=== PATIENT | male | born 1955 | race Caucasian/White ===

== ENCOUNTER 2017-12-02 02:00 | Outpatient (CLI) | payer MEDICAID, SELFPAY ==
--- NOTE | 2017-12-02 10:00 | MERGE_ITS ---
*[facility]* *[facility]* [address] [place] [address] Date of study: 12/02/2017 Transthoracic Echocardiography M-mode, complete 2D, complete spectral Doppler, and color Doppler *STUDY CONCLUSIONS* Summary: 1. Left ventricle: The cavity size was normal. Systolic function was mildly to moderately reduced. The estimated ejection fraction was 40-45%. Some parameters suggest diastolic dysfunction. There was no evidence of elevated ventricular filling pressure by Doppler parameters. 2. Ventricular septum: The contour showed diastolic flattening and systolic flattening. These changes are consistent with RV volume and RV pressure overload. 3. Aortic valve: There was mild regurgitation. 4. Mitral valve: Systolic bowing without prolapse. Mild systolic bowing without prolapse. There was mild regurgitation. 5. Right ventricle: The cavity size was severely dilated. Systolic function was severely reduced. 6. Right atrium: The atrium was severely dilated. 7. Atrial septum: No defect or patent foramen ovale was identified. 8. Tricuspid valve: There was moderate regurgitation. 9. Pulmonary arteries: Pulmonary systolic pressure was in the range of 35mm Hg to 45mm Hg. 10. Inferior vena cava: The vessel was patent and normal in size. The respirophasic diameter changes were in the normal range (greater than or equal to 50%), consistent with normal central venous pressure. *PATIENT PRESENTATION* Height: 185.4cm ((73in) ) S/D Pressure: 125 / 87 Weight: 112.5kg ((247.5lb) ) BSA: 2.44m^2 Test start time: 10:20 AM. Test stop time: 11:20 AM. PERFORMING Unknown PERFORMING [facility] ORDERING Rathburn, Jeniane L REFERRING Jackie Anders [employer] Lani Paul, RT (R)(CT), [facility] REFERRING Barak Luna *PROCEDURE DATA* Procedure information: The patient was identified by two identifiers. This study was interpreted by [facility]. Pertinent images and digital data are archived for permanent storage and are available for subsequent review. Comparison was made to the study of 09/10/2014. Study status: Routine. Transthoracic echocardiography. M-mode, complete 2D, complete spectral Doppler, and color Doppler. A Transthoracic Echocardiogram was performed. Scanning was performed from the parasternal, apical, subcostal, and suprasternal notch acoustic windows. Images were obtained using an [id number] cardiac ultrasound machine. Image quality was adequate. Study completion: The patient tolerated the procedure well. History: PMH: Leg edema *CARDIAC ANATOMY* Left ventricle: The cavity size was normal. Systolic function was mildly to moderately reduced. The estimated ejection fraction was 40-45%. The tissue Doppler parameters were abnormal. Some parameters suggest diastolic dysfunction. There was no evidence of elevated ventricular filling pressure by Doppler parameters. Aortic valve: Trileaflet. Doppler: There was no stenosis. There was mild regurgitation. VTI ratio of LVOT to aortic valve: 0.78. Valve area (VTI): 2.8cm^2. Indexed valve area (VTI): 1.1cm^2/m^2. Peak velocity ratio of LVOT to aortic valve: 0.83. Valve area (Vmax): 3cm^2. Indexed valve area (Vmax): 1.2cm^2/m^2. Mean velocity ratio of LVOT to aortic valve: 0.78. Valve area (Vmean): 2.8cm^2. Indexed valve area (Vmean): 1.1cm^2/m^2. Mean gradient (S): 1.5mm Hg. Peak gradient (S): 2.3mm Hg. Aorta: Aortic root: The aortic root was mildly dilated. Ascending aorta: The ascending aorta was mildly dilated. Mitral valve: Systolic bowing without prolapse. Mild systolic bowing without prolapse. Doppler: There was no evidence for stenosis. There was mild regurgitation. Valve area by pressure half-time: 4.4cm^2. Indexed valve area by pressure half-time: 1.8cm^2/m^2. Left atrium: The atrium was normal in size. Atrial septum: No defect or patent foramen ovale was identified. Right ventricle: The cavity size was severely dilated. Systolic function was severely reduced. Ventricular septum: The contour showed diastolic flattening and systolic flattening. These changes are consistent with RV volume and RV pressure overload. Pulmonic valve: Doppler: There was no evidence for stenosis. There was mild regurgitation. Tricuspid valve: Doppler: There was moderate regurgitation. Pulmonary artery: Poorly visualized. Pulmonary systolic pressure was in the range of 35mm Hg to 45mm Hg. Right atrium: The atrium was severely dilated. Pericardium: There was no pericardial effusion. Systemic veins: Inferior vena cava: Well visualized. The vessel was patent and normal in size. The respirophasic diameter changes were in the normal range (greater than or equal to 50%), consistent with normal central venous pressure. Baseline ECG: Normal sinus rhythm. Measurements Left ventricle Value Reference LV ID, ED, PLAX 5.0 cm 3.5 - 6.0 LV ID, ES, PLAX 4.0 cm 2.1 - 4.0 LV PW thickness, ED, PLAX 1.2 cm LV end-diastolic volume, 1-p A2C 84 ml LV ejection fraction, 1-p A2C 51 % LV end-diastolic volume, 1-p A4C 65 ml LV ejection fraction, 1-p A4C 59 % LV e', lateral 0.032 m/sec LV E/e', lateral 8 LV e', medial 0.029 m/sec LV E/e', medial 8 LV e', average 0.031 m/sec LV E/e', average 8 Ventricular septum Value Reference IVS thickness, ED, PLAX 1.1 cm LVOT Value Reference LVOT ID, A-P 2.1 cm LVOT area 3.6 cm^2 LVOT peak velocity, S 0.62 m/sec LVOT mean velocity, S 0.46 m/sec LVOT VTI, S 9.9 cm LVOT peak gradient, S 1.6 mm Hg LVOT mean gradient, S 1 mm Hg Stroke volume (SV), LVOT DP 35 ml Stroke index (SV/bsa), LVOT DP 14 ml/m^2 Aortic valve Value Reference Aortic valve peak velocity, S 0.8 m/sec Aortic valve mean velocity, S 0.59 m/sec Aortic valve VTI, S 12.6 cm Aortic mean gradient, S 1.5 mm Hg Aortic peak gradient, S 2.3 mm Hg VTI ratio, LVOT/AV 0.78 Aortic valve area, VTI 2.8 cm^2 Velocity ratio, peak, LVOT/AV 0.83 Aortic valve area, peak velocity 3 cm^2 Velocity ratio, mean, LVOT/AV 0.78 Aortic valve area, mean velocity 2.8 cm^2 Aortic valve area/bsa, mean velocity 1.1 cm^2/m^2 Aorta Value Reference Aortic root ID, ED 4.0 cm Ascending aorta ID, A-P, S 3.8 cm RVOT Value Reference RVOT VTI, S 5.0 cm Left atrium Value Reference LA ID, A-P, ES 3.3 cm LA ID/bsa, A-P 1.4 cm/m^2 <=2.2 LA area, ES, A4C 20.4 cm^2 8.8 - 23.4 LA area, ES, A2C 17 cm^2 LA volume/bsa, ES, 1-p A4C 23 ml/m^2 LA volume, ES, 2-p 57 ml LA volume/bsa, ES, 2-p 23 ml/m^2 LA/aortic root ratio 0.84 Mitral valve Value Reference Mitral E-wave peak velocity 0.24 m/sec Mitral A-wave peak velocity 0.49 m/sec Mitral deceleration time 171 ms 150 - 230 Mitral pressure half-time 50 ms Mitral E/A ratio, peak 0.5 Mitral valve area, PHT, DP 4.4 cm^2 Tricuspid valve Value Reference Tricuspid regurg peak velocity 3.3 m/sec Tricuspid peak RV-RA gradient 44.2 mm Hg Right atrium Value Reference RA area, ES, A4C (H) 35.8 cm^2 8.3 - 19.5 Legend: (L) and (H) sabas values outside specified reference range. I have personally reviewed the images and have reviewed and edited the reported findings. Electronically signed by Jose Rushing MD 12/02/2017 19:18
== END 2017-12-02 02:20 ==
PROVIDERS: PCP Physician Assistant Medical; Visit Provider Physician Assistant Medical
DX: R60.0 Localized edema (principal); I08.3 Combined rheumatic disorders of mitral, aortic and tricuspid valves; I10 Essential (primary) hypertension; I50.9 Heart failure, unspecified
CPT/HCPCS: 93306

== ENCOUNTER 2017-12-02 11:35 | Outpatient (CLI) | payer MEDICAID, SELFPAY ==
[2017-12-02 12:01] LABS: Anion Gap 0.5 mmol/L (3-11); BUN 41 mg/dL (7-18); CO2 42.5 mmol/L (21.0-32.0); CREATININE 2.43 mg/dL (0.70-1.30); Calcium 9.3 mg/dL (8.5-10.1); Chloride 92 mmol/L (98-107); Estimated GFR 27.36 (mL/min/1.73m2); Glucose 82 mg/dL (70-100); Sodium 135 mmol/L (136-145)
== END 2017-12-02 11:55 ==
PROVIDERS: PCP Physician Assistant Medical; Visit Provider Physician Assistant Medical
DX: R60.0 Localized edema (principal)
CPT/HCPCS: 36415; 80048

== ENCOUNTER 2017-12-08 11:24 | Outpatient (REF) | payer MEDICAID, SELFPAY ==
[2017-12-09 00:03] LABS: BUN 51 mg/dL (7-18); CREATININE 2.62 mg/dL (0.70-1.30); Calcium 9.4 mg/dL (8.5-10.1); Chloride 90 mmol/L (98-107); Estimated GFR 25.08 (mL/min/1.73m2); Glucose 68 mg/dL (70-100); Potassium 3.5 mmol/L (3.5-5.1); Sodium 137 mmol/L (136-145)
== END 2017-12-08 11:44 ==
LOC: NCHCN 11:24
PROVIDERS: PCP Physician Assistant Medical; Visit Provider Physician Assistant Medical
DX: N18.3 Chronic kidney disease, stage 3 (moderate) (principal)
CPT/HCPCS: 80048

== ENCOUNTER 2017-12-15 14:19 | Outpatient (REF) | payer MEDICAID, SELFPAY ==
[2017-12-15 20:23] LABS: Anion Gap 10.3 mmol/L (3-11); BUN 40 mg/dL (7-18); CO2 35.7 mmol/L (21.0-32.0); CREATININE 1.97 mg/dL (0.70-1.30); Calcium 9.2 mg/dL (8.5-10.1); Chloride 93 mmol/L (98-107); Estimated GFR 34.85 (mL/min/1.73m2); Glucose 70 mg/dL (70-100); Magnesium 1.9 mg/dL (1.8-2.4); Sodium 139 mmol/L (136-145)
[2017-12-15 20:29] LABS: Potassium 2.9 mmol/L (3.5-5.1)
== END 2017-12-15 14:39 ==
LOC: NCHCN 14:19
PROVIDERS: PCP Physician Assistant Medical; Visit Provider Physician Assistant Medical
DX: E83.42 Hypomagnesemia (principal); N18.3 Chronic kidney disease, stage 3 (moderate); R60.0 Localized edema
CPT/HCPCS: 80048; 83735

== ENCOUNTER 2017-12-22 10:31 | Outpatient (REF) | payer MEDICAID, SELFPAY ==
[2017-12-22 20:50] LABS: Anion Gap 5.7 mmol/L (3-11); BUN 41 mg/dL (7-18); CO2 39.3 mmol/L (21.0-32.0); CREATININE 1.99 mg/dL (0.70-1.30); Chloride 94 mmol/L (98-107); Estimated GFR 34.45 (mL/min/1.73m2); Glucose 85 mg/dL (70-100); Potassium 3.6 mmol/L (3.5-5.1); Sodium 139 mmol/L (136-145)
== END 2017-12-22 10:51 ==
LOC: NCHCN 10:31
PROVIDERS: PCP Physician Assistant Medical; Visit Provider Physician Assistant Medical
DX: N18.3 Chronic kidney disease, stage 3 (moderate) (principal)
CPT/HCPCS: 80048

== ENCOUNTER 2017-12-29 20:02 | Outpatient (REF) | payer MEDICAID, SELFPAY ==
[2017-12-29 20:32] LABS: Anion Gap 10.4 mmol/L (3-11); BUN 38 mg/dL (7-18); CO2 37.6 mmol/L (21.0-32.0); CREATININE 1.87 mg/dL (0.70-1.30); Calcium 9.6 mg/dL (8.5-10.1); Chloride 94 mmol/L (98-107); Estimated GFR 37.01 (mL/min/1.73m2); Glucose 92 mg/dL (70-100); Potassium 3.5 mmol/L (3.5-5.1); Sodium 142 mmol/L (136-145)
== END 2017-12-29 20:22 ==
LOC: NCHCN 20:02
PROVIDERS: PCP Physician Assistant Medical; Visit Provider Physician Assistant Medical
DX: E87.6 Hypokalemia (principal); N18.3 Chronic kidney disease, stage 3 (moderate)
CPT/HCPCS: 80048

== ENCOUNTER 2018-01-24 14:37 | Outpatient (REF) | payer MEDICAID, SELFPAY ==
[2018-01-24 21:16] LABS: Anion Gap 9.1 mmol/L (3-11); BUN 34 mg/dL (7-18); CO2 36.9 mmol/L (21.0-32.0); CREATININE 1.94 mg/dL (0.70-1.30); Calcium 9.1 mg/dL (8.5-10.1); Chloride 93 mmol/L (98-107); Estimated GFR 35.48 (mL/min/1.73m2); Glucose 82 mg/dL (70-100); Sodium 139 mmol/L (136-145); Uric Acid 11.6 mg/dL (3.5-7.2)
== END 2018-01-24 14:57 ==
LOC: NCHCN 14:37
PROVIDERS: PCP Physician Assistant Medical; Visit Provider Physician Assistant Medical
DX: N18.3 Chronic kidney disease, stage 3 (moderate) (principal); M25.579 Pain in unspecified ankle and joints of unspecified foot; E16.2 Hypoglycemia, unspecified
CPT/HCPCS: 80048; 84550

== ENCOUNTER 2018-02-21 13:34 | Outpatient (REF) | payer MEDICAID, SELFPAY ==
[2018-02-21 21:21] LABS: Anion Gap 7.6 mmol/L (3-11); BUN 44 mg/dL (7-18); CO2 40.4 mmol/L (21.0-32.0); CREATININE 2.37 mg/dL (0.70-1.30); Calcium 9.7 mg/dL (8.5-10.1); Chloride 90 mmol/L (98-107); Estimated GFR 28.06 (mL/min/1.73m2); Glucose 80 mg/dL (70-100); Potassium 3.1 mmol/L (3.5-5.1); Sodium 138 mmol/L (136-145)
== END 2018-02-21 13:54 ==
LOC: NCHCN 13:34
PROVIDERS: PCP Physician Assistant Medical; Visit Provider Physician Assistant Medical
DX: E87.6 Hypokalemia (principal); I50.9 Heart failure, unspecified
CPT/HCPCS: 80048

== ENCOUNTER 2018-03-08 16:30 | Outpatient (REF) | payer MEDICARE, MEDICAID, SELFPAY ==
[2018-03-08 20:27] LABS: Anion Gap 9.2 mmol/L (3-11); BUN 36 mg/dL (7-18); CO2 36.8 mmol/L (21.0-32.0); CREATININE 2.02 mg/dL (0.70-1.30); Calcium 9.3 mg/dL (8.5-10.1); Chloride 92 mmol/L (98-107); Estimated GFR 33.75 (mL/min/1.73m2); Glucose 74 mg/dL (70-100); Potassium 3.3 mmol/L (3.5-5.1); Sodium 138 mmol/L (136-145)
[2018-03-11 10:52] LABS: IgE 1792 IU/ml (<158)
== END 2018-03-08 16:50 ==
LOC: NCHCN 16:30
PROVIDERS: PCP Physician Assistant Medical; Visit Provider Physician Assistant Medical
DX: B44.81 Allergic bronchopulmonary aspergillosis (principal); N18.3 Chronic kidney disease, stage 3 (moderate)
CPT/HCPCS: 80048; 82785

== ENCOUNTER 2018-05-17 13:47 | Outpatient (REF) | payer MEDICARE, MEDICAID, SELFPAY ==
[2018-05-17 18:47] LABS: Hemoglobin A1C 5.7 % (4.5-6.2)
[2018-05-17 18:48] LABS: ALT 32 U/L (12-78); AST 34 U/L (15-37); Albumin 3.6 g/dL (3.4-5.0); Alkaline Phosphatase 75 U/L (46-116); Anion Gap 1.1 mmol/L (3-11); BUN 25 mg/dL (7-18); Bilirubin, Total 3.1 mg/dL (0.2-1.0); CO2 43.9 mmol/L (21.0-32.0); CREATININE 2.26 mg/dL (0.70-1.30); Calcium 9.4 mg/dL (8.5-10.1); Chloride 97 mmol/L (98-107); Estimated GFR 29.65 (mL/min/1.73m2); Glucose 79 mg/dL (70-100); Magnesium 1.9 mg/dL (1.8-2.4); Potassium 3.4 mmol/L (3.5-5.1); Sodium 142 mmol/L (136-145); Total Protein 7.2 g/dL (6.4-8.2); Uric Acid 12.5 mg/dL (3.5-7.2)
== END 2018-05-17 14:07 ==
LOC: NCHCN 13:47
PROVIDERS: PCP Physician Assistant Medical; Visit Provider Physician Assistant Medical
DX: N18.3 Chronic kidney disease, stage 3 (moderate) (principal); M1A.0790 Idiopathic chronic gout, unspecified ankle and foot, without tophus (tophi); R73.09 Other abnormal glucose
CPT/HCPCS: 80053; 83036; 83735; 84550

== ENCOUNTER 2018-06-27 14:46 | Outpatient (REF) | payer MEDICARE, MEDICAID, SELFPAY ==
[2018-06-27 21:16] LABS: Anion Gap 8.2 mmol/L (3-11); BUN 35 mg/dL (7-18); CO2 36.8 mmol/L (21.0-32.0); CREATININE 2.71 mg/dL (0.70-1.30); Calcium 9.5 mg/dL (8.5-10.1); Chloride 95 mmol/L (98-107); Estimated GFR 24.04 (mL/min/1.73m2); Glucose 70 mg/dL (70-100); Sodium 140 mmol/L (136-145); Uric Acid 13.8 mg/dL (3.5-7.2)
== END 2018-06-27 15:06 ==
LOC: NCHCN 14:46
PROVIDERS: PCP Physician Assistant Medical; Visit Provider Physician Assistant Medical
DX: N18.3 Chronic kidney disease, stage 3 (moderate) (principal); M1A.0790 Idiopathic chronic gout, unspecified ankle and foot, without tophus (tophi)
CPT/HCPCS: 80048; 84550

== ENCOUNTER 2018-10-26 15:20 | Outpatient (CLI) | payer MEDICARE, MEDICAID, SELFPAY | END 2018-10-26 15:40 | PROVIDERS: PCP Physician Assistant Medical; Visit Provider Internal Medicine Pulmonary Disease | DX: R69 Illness, unspecified (principal) ==

== ENCOUNTER 2018-10-27 10:21 | Outpatient (CLI) | payer MEDICARE, MEDICAID, SELFPAY ==
--- NOTE | 2018-10-26 | PFT_ITS ---
PULMONARY FUNCTION TEST REPORT Patient - John Paul Kenyon DATE OF SERVICE October 26, 2018 REQUESTING PROVIDER Declan Rush MD INTERPRETATION OF STUDY Spirometry shows moderately severe obstructive airways disease with some, but not significant bronchodilator response. LUNG VOLUMES - Lung volumes show mild restriction. DIFFUSION CAPACITY- Normal. AIRWAY RESISTANCE - Normal. IMPRESSION Combination of moderately severe obstructive airways disease with some, but not significant bronchodilator response and mild restrictive lung disease. Clinical correlation recommended. When this study was compared to previous one from 02/19/2014, the patient has a total of 430 cc decline in FVC and 640 cc decline in FEV1. Deanne Oliver M.D. VLADISLAV/ T- 10/27/2018
[2018-10-26] MEDS: Albuterol HFA 18 GM 200 PUFF INH IH (11:02)
[2018-10-26] MEDS: Inhaler, Assist Device 1 EACH MC (11:02)
[2018-10-27 10:27] LABS: HCO3 35 mmol/L (22-28); pCO2 42 mmHg (34-47); pH 7.52 (7.35-7.45); pO2 104 mmHg (83-108); sO2 98 % (94-98); tCO2 28 mmol/L (22-29)
[2018-10-27 10:30] LABS: Site Right Radial
== END 2018-10-27 10:41 ==
PROVIDERS: PCP Physician Assistant Medical; Visit Provider Internal Medicine Pulmonary Disease
DX: R06.02 Shortness of breath (principal); B44.81 Allergic bronchopulmonary aspergillosis; R55 Syncope and collapse
CPT/HCPCS: 82805; 94060; 94150; 94726; 94729; 36600

== ENCOUNTER 2019-02-10 13:09 | Outpatient (REF) | payer MEDICARE, MEDICAID, SELFPAY ==
[2019-02-10 20:41] LABS: Absolute Basophil Count 0.03 k/cumm (0.0-0.2); Absolute Eosinophil Count 0.15 k/cumm (0.0-0.7); Absolute Lymphocyte Count 0.56 k/cumm (1.2-3.4); Absolute Monocyte Count 0.63 k/cumm (0.11-0.7); Absolute Neutrophil Count 3.54 k/cumm (1.2-6.7); Basophils % 0.6; Eosinophils % 3.1; HCT 53.7 % (40.0-50.0); HGB 18.2 g/dL (13.5-17.5); Lymphocytes % 11.4; Mean Corp. HGB Concentration 33.9 g/dL (32.0-36.0); Mean Corpuscular Hemoglobin 35.9 pg (27.0-33.0); Mean Corpuscular Volume 105.9 fL (80-95); Mean Platelet Volume 12.1 fL (8.0-11.0); Monocytes % 12.8; Neutrophils % 72.1; Platelet Count 129 x1000/uL (130-400); RBC 5.07 m/cumm (4.50-6.00); RBC Distribution Width 15.9 % (11.8-14.1); White Blood Cell Count 4.91 k/cumm (4.4-10.8)
[2019-02-10 20:45] LABS: Anion Gap 9.7 mmol/L (3-11); BUN 28 mg/dL (7-18); CO2 34.3 mmol/L (21.0-32.0); CREATININE 2.54 mg/dL (0.70-1.30); Calcium 9.2 mg/dL (8.5-10.1); Chloride 94 mmol/L (98-107); Estimated GFR 25.82 (mL/min/1.73m2); Glucose 53 mg/dL (70-100); Sodium 138 mmol/L (136-145)
[2019-02-10 20:56] LABS: Potassium 2.9 mmol/L (3.5-5.1)
[2019-02-10 21:01] LABS: Macrocytosis 1+
[2019-02-10 21:12] LABS: Hemoglobin A1C 5.9 % (4.5-6.2)
== END 2019-02-10 13:29 ==
LOC: NCHCN 13:09
PROVIDERS: PCP Physician Assistant Medical; Visit Provider Physician Assistant Medical
DX: I27.24 Chronic thromboembolic pulmonary hypertension (principal); R73.01 Impaired fasting glucose; N18.3 Chronic kidney disease, stage 3 (moderate)
CPT/HCPCS: 80048; 83036; 85025

== ENCOUNTER 2019-02-20 21:56 | Outpatient (REF) | payer MEDICARE, MEDICAID, SELFPAY ==
[2019-02-20 22:25] LABS: ALT 29 U/L (16-63); AST 35 U/L (15-37); Albumin 3.9 g/dL (3.4-5.0); Alkaline Phosphatase 75 U/L (46-116); Anion Gap 11.7 mmol/L (3-11); BUN 31 mg/dL (7-18); Bilirubin, Total 4.3 mg/dL (0.2-1.0); CO2 33.3 mmol/L (21.0-32.0); CREATININE 2.47 mg/dL (0.70-1.30); Calcium 9.5 mg/dL (8.5-10.1); Chloride 96 mmol/L (98-107); Estimated GFR 26.67 (mL/min/1.73m2); Glucose 93 mg/dL (74-106); Potassium 3.1 mmol/L (3.5-5.1); Sodium 141 mmol/L (136-145); Total Protein 7.1 g/dL (6.4-8.2)
== END 2019-02-20 22:16 ==
LOC: NCHCN 21:56
PROVIDERS: PCP Physician Assistant Medical; Visit Provider Physician Assistant Medical
DX: E87.5 Hyperkalemia (principal)
CPT/HCPCS: 80053

== ENCOUNTER 2019-03-07 09:45 | Outpatient (REF) | payer MEDICARE, MEDICAID, SELFPAY ==
[2019-03-07 19:46] LABS: BUN 34 mg/dL (7-18); CREATININE 2.56 mg/dL (0.70-1.30); Chloride 98 mmol/L (98-107); Estimated GFR 25.59 (mL/min/1.73m2); Glucose 92 mg/dL (74-106); Potassium 3.3 mmol/L (3.5-5.1); Sodium 141 mmol/L (136-145)
== END 2019-03-07 10:05 ==
LOC: NCHCN 09:45
PROVIDERS: PCP Physician Assistant Medical; Visit Provider Physician Assistant Medical
DX: I10 Essential (primary) hypertension (principal)
CPT/HCPCS: 80048

== ENCOUNTER 2019-06-02 11:39 | Outpatient (REF) | payer MEDICARE, MEDICAID, SELFPAY ==
[2019-06-02 19:11] LABS: Absolute Basophil Count 0.04 k/cumm (0.0-0.2); Absolute Eosinophil Count 0.35 k/cumm (0.0-0.7); Absolute Monocyte Count 0.84 k/cumm (0.11-0.7); Absolute Neutrophil Count 3.83 k/cumm (1.2-6.7); Basophils % 0.7; Eosinophils % 6.4; HCT 49.1 % (40.0-50.0); HGB 16.9 g/dL (13.5-17.5); Lymphocytes % 7.3; Mean Corp. HGB Concentration 34.4 g/dL (32.0-36.0); Mean Corpuscular Hemoglobin 36.7 pg (27.0-33.0); Mean Corpuscular Volume 106.5 fL (80-95); Mean Platelet Volume 12.2 fL (8.0-11.0); Monocytes % 15.4; Neutrophils % 70.2; Platelet Count 117 x1000/uL (130-400); RBC 4.61 m/cumm (4.50-6.00); RBC Distribution Width 16.1 % (11.8-14.1); White Blood Cell Count 5.46 k/cumm (4.4-10.8)
[2019-06-02 19:44] LABS: Diff Comment RBC Morph Reviewed; Macrocytosis 2+
[2019-06-02 19:53] LABS: ALT 29 U/L (16-63); AST 29 U/L (15-37); Albumin 3.8 g/dL (3.4-5.0); Alkaline Phosphatase 71 U/L (46-116); Anion Gap 8.2 mmol/L (3-11); BUN 30 mg/dL (7-18); Bilirubin, Total 3.7 mg/dL (0.2-1.0); CO2 33.8 mmol/L (21.0-32.0); Calcium 8.9 mg/dL (8.5-10.1); Chloride 98 mmol/L (98-107); Estimated GFR 25.14 (mL/min/1.73m2); Glucose 89 mg/dL (74-106); Magnesium 1.5 mg/dL (1.8-2.4); NT-proBNP 6424 pg/mL (<300); Sodium 140 mmol/L (136-145); Total Protein 6.6 g/dL (6.4-8.2)
[2019-06-02 19:56] LABS: Hemoglobin A1C 5.8 % (3.8-5.6)
[2019-06-02 20:19] LABS: Potassium 2.8 mmol/L (3.5-5.1)
[2019-06-05 10:25] LABS: IgE 1865 IU/mL (<158)
== END 2019-06-02 11:59 ==
LOC: NCHCN 11:39
PROVIDERS: PCP Physician Assistant Medical; Visit Provider Physician Assistant Medical
DX: E83.42 Hypomagnesemia (principal); R73.03 Prediabetes; I50.9 Heart failure, unspecified; B44.81 Allergic bronchopulmonary aspergillosis; I27.24 Chronic thromboembolic pulmonary hypertension; N18.3 Chronic kidney disease, stage 3 (moderate)
CPT/HCPCS: 80053; 82785; 83036; 83735; 83880; 85025

== ENCOUNTER 2019-06-12 22:05 | Outpatient (REF) | payer MEDICARE, MEDICAID, SELFPAY ==
[2019-06-12 18:54] LABS: Anion Gap 7.8 mmol/L (3-11); BUN 24 mg/dL (7-18); CO2 35.2 mmol/L (21.0-32.0); CREATININE 2.12 mg/dL (0.70-1.30); Calcium 9.1 mg/dL (8.5-10.1); Chloride 99 mmol/L (98-107); Estimated GFR 31.81 (mL/min/1.73m2); Glucose 98 mg/dL (74-106); Potassium 3.5 mmol/L (3.5-5.1); Sodium 142 mmol/L (136-145)
== END 2019-06-12 22:25 ==
LOC: NCHCN 22:05
PROVIDERS: PCP Physician Assistant Medical; Visit Provider Physician Assistant Medical
DX: E87.6 Hypokalemia (principal)
CPT/HCPCS: 80048

== ENCOUNTER 2019-09-01 13:23 | Outpatient (REF) | payer MEDICARE, MEDICAID, SELFPAY ==
[2019-09-01 20:15] LABS: Anion Gap 7.3 mmol/L (3-11); BUN 29 mg/dL (7-18); CO2 33.7 mmol/L (21.0-32.0); CREATININE 2.58 mg/dL (0.70-1.30); Chloride 96 mmol/L (98-107); Estimated GFR 25.36 (mL/min/1.73m2); Glucose 74 mg/dL (74-106); Magnesium 1.5 mg/dL (1.8-2.4); Sodium 137 mmol/L (136-145); Uric Acid 11.2 mg/dL (3.5-7.2)
[2019-09-01 20:25] LABS: Potassium 2.5 mmol/L (3.5-5.1)
== END 2019-09-01 13:43 ==
LOC: NCHCN 13:23
PROVIDERS: PCP Physician Assistant Medical; Visit Provider Physician Assistant Medical
DX: I10 Essential (primary) hypertension (principal); N18.3 Chronic kidney disease, stage 3 (moderate); M1A.0790 Idiopathic chronic gout, unspecified ankle and foot, without tophus (tophi)
CPT/HCPCS: 80048; 83735; 84550

== ENCOUNTER 2019-09-04 16:00 | Outpatient (REF) | payer MEDICARE, MEDICAID, SELFPAY ==
[2019-09-05 16:47] LABS: Anion Gap 9.2 mmol/L (3-11); BUN 27 mg/dL (7-18); CO2 33.8 mmol/L (21.0-32.0); CREATININE 2.42 mg/dL (0.70-1.30); Calcium 9.5 mg/dL (8.5-10.1); Chloride 99 mmol/L (98-107); Estimated GFR 27.31 (mL/min/1.73m2); Glucose 95 mg/dL (74-106); Magnesium 1.7 mg/dL (1.8-2.4); Potassium 3.5 mmol/L (3.5-5.1); Sodium 142 mmol/L (136-145)
== END 2019-09-04 16:20 ==
LOC: NCHCN 16:00
PROVIDERS: PCP Physician Assistant Medical; Visit Provider Physician Assistant Medical
DX: E87.6 Hypokalemia (principal); E83.42 Hypomagnesemia
CPT/HCPCS: 80048; 83735

== ENCOUNTER 2019-09-18 13:04 | Outpatient (REF) | payer MEDICARE, MEDICAID, SELFPAY ==
[2019-09-18 21:02] LABS: ALT 34 U/L (16-63); AST 37 U/L (15-37); Albumin 3.9 g/dL (3.4-5.0); Alkaline Phosphatase 79 U/L (46-116); Anion Gap 10.7 mmol/L (3-11); BUN 23 mg/dL (7-18); Bilirubin, Total 3.7 mg/dL (0.2-1.0); CO2 31.3 mmol/L (21.0-32.0); CREATININE 2.36 mg/dL (0.70-1.30); Calcium 9.2 mg/dL (8.5-10.1); Chloride 99 mmol/L (98-107); Estimated GFR 28.11 (mL/min/1.73m2); Glucose 87 mg/dL (74-106); Potassium 3.4 mmol/L (3.5-5.1); Sodium 141 mmol/L (136-145); Total Protein 6.7 g/dL (6.4-8.2)
== END 2019-09-18 13:24 ==
LOC: NCHCN 13:04
PROVIDERS: PCP Physician Assistant Medical; Visit Provider Physician Assistant Medical
DX: E87.6 Hypokalemia (principal); E80.6 Other disorders of bilirubin metabolism
CPT/HCPCS: 80053

== ENCOUNTER 2019-11-17 18:15 | Outpatient (REF) | payer MEDICARE, MEDICAID, SELFPAY ==
[2019-11-17 19:28] LABS: Abs Immature Grans 0.01 10^3/uL (0.0-0.06); Absolute Basophil Count 0.04 10^3/uL (0.0-0.2); Absolute Eosinophil Count 0.41 10^3/uL (0.0-0.7); Absolute Lymphocyte Count 0.46 10^3/uL (1.2-3.4); Absolute Monocyte Count 0.67 10^3/uL (0.1-0.8); Absolute Neutrophil Count 3.41 10^3/uL (1.2-6.7); Basophils % 0.8; Eosinophils % 8.2; HCT 50.6 % (40.0-50.0); Immature Grans % 0.2; Lymphocytes % 9.2; MCH 35.9 pg (27.0-33.0); MCHC 33.6 % (32.0-36.0); MPV 12.4 fL (8.0-11.0); Monocytes % 13.4; Neutrophils % 68.2; Nucleated RBC 0 %; Platelet Count 114 10^3/uL (130-400); RBC 4.73 10^6/uL (4.36-5.78); RDW 15.9 % (11.8-14.1); RDW-SD 63.6 fL
[2019-11-17 20:01] LABS: ALT 36 U/L (16-63); AST 33 U/L (15-37); Albumin 3.6 g/dL (3.4-5.0); Alkaline Phosphatase 86 U/L (46-116); Anion Gap 6.6 mmol/L (3-11); BUN 21 mg/dL (7-18); Bilirubin, Total 2.8 mg/dL (0.2-1.0); CO2 35.4 mmol/L (21.0-32.0); CREATININE 2.23 mg/dL (0.70-1.30); Calcium 9.1 mg/dL (8.5-10.1); Chloride 97 mmol/L (98-107); Creatine Kinase 69 U/L (39-308); Estimated GFR 30.01 (mL/min/1.73m2); Glucose 68 mg/dL (74-106); Magnesium 1.8 mg/dL (1.8-2.4); Potassium 3.3 mmol/L (3.5-5.1); Sodium 139 mmol/L (136-145); Total Protein 6.7 g/dL (6.4-8.2)
[2019-11-17 20:03] LABS: Hemoglobin A1C 5.8 % (3.8-5.6)
[2019-11-17 20:17] LABS: Diff Comment RBC Morph Reviewed
[2019-11-17 20:18] LABS: Macrocytosis 1+
== END 2019-11-17 18:35 ==
LOC: NCHCN 18:15
PROVIDERS: PCP Physician Assistant Medical; Visit Provider Physician Assistant Medical
DX: N18.3 Chronic kidney disease, stage 3 (moderate) (principal); M62.81 Muscle weakness (generalized); R73.03 Prediabetes
CPT/HCPCS: 80053; 82550; 83036; 83735; 85025

== ENCOUNTER 2020-03-25 16:25 | Outpatient (REF) | payer MEDICARE, MEDICAID, SELFPAY ==
[2020-03-25 19:31] LABS: Abs Immature Grans 0.03 10^3/uL (0.0-0.06); Absolute Basophil Count 0.08 10^3/uL (0.0-0.2); Absolute Eosinophil Count 0.47 10^3/uL (0.0-0.7); Absolute Lymphocyte Count 0.58 10^3/uL (1.2-3.4); Absolute Monocyte Count 0.81 10^3/uL (0.1-0.8); Absolute Neutrophil Count 5.85 10^3/uL (1.2-6.7); Immature Grans % 0.4; Lymphocytes % 7.4; MCH 36.2 pg (27.0-33.0); MCHC 35.5 % (32.0-36.0); MCV 101.8 fL (80-95); MPV 12.2 fL (8.0-11.0); Monocytes % 10.4; Neutrophils % 74.8; Nucleated RBC 0 %; Platelet Count 147 10^3/uL (130-400); RBC 5.42 10^6/uL (4.36-5.78); RDW 13.6 % (11.8-14.1); RDW-SD 51.7 fL; WBC 7.82 10^3/uL (4.4-10.8)
[2020-03-25 19:38] LABS: HCT 55.2 % (40.0-50.0)
[2020-03-25 19:39] LABS: HGB 19.6 g/dL (13.5-17.5)
[2020-03-25 19:55] LABS: ALT 40 U/L (16-63); AST 52 U/L (15-37); Albumin 3.8 g/dL (3.4-5.0); Alkaline Phosphatase 93 U/L (46-116); Anion Gap 8.6 mmol/L (3-11); BUN 57 mg/dL (7-18); Bilirubin, Total 2.3 mg/dL (0.2-1.0); CO2 34.4 mmol/L (21.0-32.0); CREATININE 2.44 mg/dL (0.70-1.30); Calcium 9.4 mg/dL (8.5-10.1); Chloride 86 mmol/L (98-107); Estimated GFR 26.96 (mL/min/1.73m2); Glucose 93 mg/dL (74-106); Sodium 129 mmol/L (136-145); Total Protein 7.5 g/dL (6.4-8.2); Uric Acid 9.2 mg/dL (3.5-7.2)
[2020-03-25 20:28] LABS: Potassium 2.6 mmol/L (3.5-5.1)
[2020-03-25 21:05] LABS: Hemoglobin A1C 5.7 % (<5.7)
== END 2020-03-25 16:45 ==
LOC: NCHCN 16:25
PROVIDERS: PCP Physician Assistant Medical; Visit Provider Physician Assistant Medical
DX: R53.1 Weakness (principal); R73.03 Prediabetes; I50.9 Heart failure, unspecified; M1A.0710 Idiopathic chronic gout, right ankle and foot, without tophus (tophi)
CPT/HCPCS: 80053; 83036; 84443; 84550; 85025

== ENCOUNTER 2020-04-03 17:44 | Outpatient (REF) | payer MEDICARE, MEDICAID, SELFPAY ==
[2020-04-03 15:46] LABS: Abs Immature Grans 0.05 10^3/uL (0.0-0.06); Absolute Basophil Count 0.06 10^3/uL (0.0-0.2); Absolute Eosinophil Count 0.52 10^3/uL (0.0-0.7); Absolute Lymphocyte Count 0.44 10^3/uL (1.2-3.4); Absolute Monocyte Count 0.73 10^3/uL (0.1-0.8); Absolute Neutrophil Count 5.36 10^3/uL (1.2-6.7); Basophils % 0.8; Eosinophils % 7.3; HCT 50.4 % (40.0-50.0); HGB 16.8 g/dL (13.5-17.5); Immature Grans % 0.7; Lymphocytes % 6.1; MCH 35.8 pg (27.0-33.0); MCHC 33.3 % (32.0-36.0); MCV 107.5 fL (80-95); MPV 11.1 fL (8.0-11.0); Monocytes % 10.2; Neutrophils % 74.9; Nucleated RBC 0 %; Platelet Count 156 10^3/uL (130-400); RBC 4.69 10^6/uL (4.36-5.78); RDW 14.6 % (11.8-14.1); WBC 7.16 10^3/uL (4.4-10.8)
[2020-04-03 15:51] LABS: Anion Gap 9.8 mmol/L (3-11); BUN 45 mg/dL (7-18); CO2 28.2 mmol/L (21.0-32.0); CREATININE 2.48 mg/dL (0.70-1.30); Calcium 9.1 mg/dL (8.5-10.1); Chloride 97 mmol/L (98-107); Estimated GFR 26.46 (mL/min/1.73m2); Glucose 78 mg/dL (74-106); Sodium 135 mmol/L (136-145)
== END 2020-04-03 18:04 ==
LOC: NCHCN 17:44
PROVIDERS: PCP Physician Assistant Medical; Visit Provider Physician Assistant Medical
DX: E87.6 Hypokalemia (principal); E83.42 Hypomagnesemia; E87.1 Hypo-osmolality and hyponatremia
CPT/HCPCS: 80048; 85025

== ENCOUNTER 2020-04-15 19:29 | Outpatient (REF) | payer MEDICARE, MEDICAID, SELFPAY ==
[2020-04-15 20:52] LABS: Anion Gap 6.8 mmol/L (3-11); BUN 28 mg/dL (7-18); CO2 31.2 mmol/L (21.0-32.0); CREATININE 2.31 mg/dL (0.70-1.30); Calcium 8.7 mg/dL (8.5-10.1); Chloride 98 mmol/L (98-107); Estimated GFR 28.72 (mL/min/1.73m2); Glucose 74 mg/dL (74-106); Potassium 3.5 mmol/L (3.5-5.1); Sodium 136 mmol/L (136-145)
== END 2020-04-15 19:49 ==
LOC: NCHCN 19:29
PROVIDERS: PCP Physician Assistant Medical; Visit Provider Physician Assistant Medical
DX: E87.1 Hypo-osmolality and hyponatremia (principal); E87.6 Hypokalemia
CPT/HCPCS: 80048

== ENCOUNTER 2020-05-01 15:36 | Outpatient (REF) | payer MEDICARE, MEDICAID, SELFPAY ==
[2020-05-01 16:39] LABS: Anion Gap 7.8 mmol/L (3-11); BUN 23 mg/dL (7-18); CO2 32.2 mmol/L (21.0-32.0); CREATININE 2.3 mg/dL (0.70-1.30); Calcium 9.2 mg/dL (8.5-10.1); Chloride 102 mmol/L (98-107); Estimated GFR 28.86 (mL/min/1.73m2); Glucose 88 mg/dL (74-106); Magnesium 1.9 mg/dL (1.8-2.4); NT-proBNP 22584 pg/mL (<300); Potassium 4.2 mmol/L (3.5-5.1); Sodium 142 mmol/L (136-145)
== END 2020-05-01 15:37 | disposition home or self-care (01) ==
LOC: NCHCN 15:36
PROVIDERS: PCP Physician Assistant Medical; Visit Provider Physician Assistant Medical
DX: I50.9 Heart failure, unspecified (principal); E87.6 Hypokalemia; E83.42 Hypomagnesemia
CPT/HCPCS: 80048; 83735; 83880

== ENCOUNTER 2020-05-15 18:49 | Outpatient (REF) | payer MEDICARE, MEDICAID, SELFPAY ==
[2020-05-15 15:57] LABS: Abs Immature Grans 0.03 10^3/uL (0.0-0.06); Absolute Basophil Count 0.04 10^3/uL (0.0-0.2); Absolute Eosinophil Count 0.07 10^3/uL (0.0-0.7); Absolute Lymphocyte Count 0.48 10^3/uL (1.2-3.4); Absolute Neutrophil Count 3.99 10^3/uL (1.2-6.7); Basophils % 0.8; Eosinophils % 1.3; HCT 52.6 % (40.0-50.0); HGB 17.6 g/dL (13.5-17.5); Immature Grans % 0.6; MCH 36.6 pg (27.0-33.0); MCHC 33.5 % (32.0-36.0); MCV 109.4 fL (80-95); MPV 12.9 fL (8.0-11.0); Monocytes % 13.2; Neutrophils % 75.1; Nucleated RBC 0 %; Platelet Count 135 10^3/uL (130-400); RBC 4.81 10^6/uL (4.36-5.78); RDW 16.5 % (11.8-14.1); RDW-SD 67.1 fL; WBC 5.31 10^3/uL (4.4-10.8)
[2020-05-15 16:13] LABS: ALT 31 U/L (16-63); AST 36 U/L (15-37); Albumin 3.5 g/dL (3.4-5.0); Alkaline Phosphatase 69 U/L (46-116); Anion Gap 8.1 mmol/L (3-11); BUN 23 mg/dL (7-18); Bilirubin, Total 3.8 mg/dL (0.2-1.0); CO2 33.9 mmol/L (21.0-32.0); CREATININE 1.7 mg/dL (0.70-1.30); Calcium 9.3 mg/dL (8.5-10.1); Chloride 97 mmol/L (98-107); Estimated GFR 40.91 (mL/min/1.73m2); Glucose 106 mg/dL (74-106); NT-proBNP 11277 pg/mL (<300); Potassium 3.8 mmol/L (3.5-5.1); Sodium 139 mmol/L (136-145); Total Protein 6.8 g/dL (6.4-8.2)
[2020-05-15 17:20] LABS: Diff Comment RBC Morph Reviewed; Macrocytosis 3+
== END 2020-05-15 18:50 | disposition home or self-care (01) ==
LOC: NCHCN 18:49
PROVIDERS: PCP Physician Assistant Medical; Visit Provider Physician Assistant Medical
DX: I50.9 Heart failure, unspecified (principal)
CPT/HCPCS: 80053; 83880; 85025

== ENCOUNTER 2020-05-20 01:59 | Outpatient (CLI) | payer MEDICARE, MEDICAID, SELFPAY ==
--- NOTE | 2020-05-20 | DI.CT_ITS ---
EXAM: CT CHEST/ABD/PEL WO CLINICAL HISTORY: WT LOSS,R63.4,CHF,HYPERBILIRUBINEMA,CHRONIC THROMBOEMBOLIC PULMONARY. TECHNIQUE: Imaging Protocol: Axial computed tomography images with coronal and sagittal reformatted images were created and reviewed CONTRAST MATERIAL: Intravenous: None Oral: Oral contrast was administered for bowel opacification. COMPARISON: CT ABD PELVIS WITH CONTRAST from 02/11/2015 CR PORTABLE CHEST ONE VIEW from 02/12/2015. Also chest x-ray January 2015 FINDINGS: CHEST: LUNGS: The previously present (2014) extensive infiltrates have resolved. There presently mild incre ased markings in the lingular segment of the left lung and no other significant focal left lung findi ngs. In the opposite-right lung there benign-appearing increased markings in the peripheral right lo wer lobe, not associated with air bronchograms. Also some benign-appearing increased markings in the lateral basal segment of the right lower lobe which are unchanged from 2015.. There is no pleural e ffusion on the left side. There is a small right-sided pleural effusion. There are no focal findings in trachea and mainstem bronchi. There is no bronchiectasis. MEDIASTINUM: There is no obvious hilar nor mediastinal evident on this noninfused study. No subcarin al adenopathy. There is no supraclavicular adenopathy. There is no axillary adenopathy. The partia lly included thyroid gland exhibits normal size but with possible nodule in the lateral right lobe me asuring 7 x 5 millimeters. CARDIAC: There is cardiomegaly. No pericardial effusion. Caliber of the thoracic aorta is within no rmal limits. 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 ABDOMEN: There is no ascites. LIVER: There are no obvious focal hepatic lesions nor dilatation of intrahepatic ducts. GALLBLADDER/BILIARY: Multiple noncalcified gallstones are noted throughout the gallbladder lumen. Ga llbladder is not edematous. CBD is not dilated. PANCREAS: Pancreas appears somewhat atrophic. There is no evidence of pancreatic mass nor dilatation of the pancreatic duct. SPLEEN: Spleen is not enlarged. There are no intrasplenic lesions. The splenic vein is thin. Diffic ult to assess for patency without IV contrast. Main portal vein exhibits normal diameter as does the superior mesenteric vein. ADRENALS: No significant adrenal masses KIDNEYS: There is 9 x 8 millimeter benign exophytic cyst off the lateral cortex of the left kidney. No other significant focal findings in either kidney. No hydronephrosis nor hydroureter.. No signif icant findings in the nondistended urinary bladder. ABDOMINAL AORTA: Abdominal aorta is not enlarged. LYMPH NODES: There is no retroperitoneal nor paraaortic adenopathy. ABDOMINAL WALL/GI: There is a fat containing left inguinal hernia. No intra-abdominal loops. The co sheri above this level is slightly prominent in diameter but there does not appear to be entrapped sigm oid within the internal inguinal ring at this level. Cecum is mobile. There is no evidence of small-bowel obstruction. PELVIS: LYMPH NODES: There is no intrapelvic nor inguinal adenopathy. GI: Appendix is not seen is a structure but there is no evidence of obvious appendicitis.There is no significant sigmoid diverticular disease. URINARY BLADDER: No calculi nor masses evident REPRODUCTIVE: Prostate gland and seminal vesicles are not enlarged. OSSEOUS: No significant osseous lesions. However, there is partial ankylosis of the SI joints bilaterally. IMPRESSION: 1. Extensive lung infiltrate seen on CT scan of January 2015 have resolved. Benign-appearing increa sed markings in the right lower lobe are stable from 2015 although there is now a small right pleural effusion evident which was not previously present. There is also mild infiltrate evident in the katie gular segment of the left lung, not evident in 2015. There is no obvious intrathoracic adenopathy ev ident on this noninfused study. 2. Pulmonary arteries are slightly prominent in caliber and contain intraluminal strand like calcific ation in the main pulmonary arteries and bifurcation of the main pulmonary artery. This most probabl y implies the presence of prior saddle embolus at this level. It is not possible to determine the pr esence of acute pulmonary emboli as this is a noninfused study. 3. Small nodule noted in the right thyroid lobe. 4. Cholelithiasis. There are multiple gallstones in the gallbladder lumen. No obvious acute cholecy stitis nor dilatation of the biliary tree. 5. There is a fat containing left inguinal hernia. The diameter of the colon above this level is p rominent but there does not appear to be part of the sigmoid inside of the hernia sac at this level. 6. partial ankylosis of the sacroiliac joints is evident. RADIATION DOSE DELIVERED: 1,091.33mGy.cm Total DLP DATA REPOSITORY: All CT scans at this facility are submitted to the National Radiology Data Registry (NRDR) Dose Index Registry (DIR) with the [employer] ([employer]). RADIATION OPTIMIZATION: All CT scans at this facility use at least one of these dose optimization te chniques: automated exposure control; mA and/or kV adjustment per patient size (includes targeted exa ms where dose is matched to clinical indication); or iterative reconstruction.
[2020-05-20] MEDS: Omnipaque 350 MG/ML 50 ML BTL PO (13:30)
== END 2020-05-20 02:00 ==
LOC: DI 01:59
PROVIDERS: PCP Physician Assistant Medical; Visit Provider Physician Assistant Medical
DX: R63.4 Abnormal weight loss (principal); I50.9 Heart failure, unspecified; I27.24 Chronic thromboembolic pulmonary hypertension; E80.6 Other disorders of bilirubin metabolism; R91.8 Other nonspecific abnormal finding of lung field; J90 Pleural effusion, not elsewhere classified; E04.1 Nontoxic single thyroid nodule; K40.90 Unilateral inguinal hernia, without obstruction or gangrene, not specified as recurrent
CPT/HCPCS: 71250; 74176; Q9967

== ENCOUNTER 2020-06-21 14:14 | Outpatient (REF) | payer MEDICARE, SELFPAY ==
[2020-06-21 15:19] LABS: Abs Immature Grans 0.01 10^3/uL (0.0-0.06); Absolute Basophil Count 0.05 10^3/uL (0.0-0.2); Absolute Eosinophil Count 0.44 10^3/uL (0.0-0.7); Absolute Lymphocyte Count 0.68 10^3/uL (1.2-3.4); Absolute Monocyte Count 0.54 10^3/uL (0.1-0.8); Absolute Neutrophil Count 3.62 10^3/uL (1.2-6.7); Basophils % 0.9; Eosinophils % 8.2; HCT 53.3 % (40.0-50.0); HGB 17.9 g/dL (13.5-17.5); Immature Grans % 0.2; Lymphocytes % 12.7; MCH 35.4 pg (27.0-33.0); MCHC 33.6 % (32.0-36.0); MCV 105.3 fL (80-95); MPV 12.1 fL (8.0-11.0); Monocytes % 10.1; Neutrophils % 67.9; Nucleated RBC 0 %; Platelet Count 106 10^3/uL (130-400); RBC 5.06 10^6/uL (4.36-5.78); RDW 14.3 % (11.8-14.1); WBC 5.34 10^3/uL (4.4-10.8)
[2020-06-21 16:18] LABS: Hemoglobin A1C 5.6 % (<5.7)
[2020-06-21 16:22] LABS: ALT 36 U/L (16-63); AST 29 U/L (15-37); Albumin 3.5 g/dL (3.4-5.0); Alkaline Phosphatase 89 U/L (46-116); Anion Gap 5.8 mmol/L (3-11); BUN 27 mg/dL (7-18); CO2 35.2 mmol/L (21.0-32.0); CREATININE 1.7 mg/dL (0.70-1.30); Calcium 9.4 mg/dL (8.5-10.1); Chloride 100 mmol/L (98-107); Estimated GFR 40.91 (mL/min/1.73m2); Glucose 79 mg/dL (74-106); NT-proBNP 10213 pg/mL (<300); Potassium 4.1 mmol/L (3.5-5.1); Sodium 141 mmol/L (136-145); Total Protein 6.9 g/dL (6.4-8.2)
[2020-06-21 16:25] LABS: Diff Comment Agrees w/ Instrument
[2020-06-21 16:26] LABS: Macrocytosis 1+
== END 2020-06-21 14:15 | disposition home or self-care (01) ==
LOC: NCHCN 14:14
PROVIDERS: PCP Physician Assistant Medical; Visit Provider Physician Assistant Medical
DX: R63.4 Abnormal weight loss (principal); N18.9 Chronic kidney disease, unspecified; I50.9 Heart failure, unspecified; R73.09 Other abnormal glucose; E83.42 Hypomagnesemia
CPT/HCPCS: 80053; 83036; 83735; 83880; 85025